=== PATIENT | female | born 1990 | race Two or more races ===

== ENCOUNTER 2023-09-23 15:09 | Emergency (ER) | payer OTHER, SELFPAY ==
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
--- NOTE | ~2023-09-23 | XR_ITS ---
EXAMINATION: XR FEMUR, RIGHT CLINICAL INFORMATION: Pain COMPARISON: Visualized proximal femur on the CT scan from earlier today TECHNIQUE: Single frontal views of the right femur were obtained. FINDINGS: Visualized bone is unremarkable. I do not appreciate any acute fracture or dislocation. No bony destructive lesion or periosteal reaction. No acute abnormality seen within the knee on this single projection XR/XR femur RT 2V IMPRESSION: No acute bony abnormality on this single projection.
[2023-09-23 15:11] VITALS: BP 190/140; BP 213/130; PULSE 110; PULSE 99; RESP 20; TEMP 36.2; O2SAT 100; BMI 27.0
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
[2023-09-23 15:25] VITALS: RESP 24
[2023-09-23] MEDS: Morphine Sulfate 4 MG/ML CARTRIDGE IVPUSH (15:25)
[2023-09-23 15:46] LABS: MANUAL DIFF FLAG NO
[2023-09-23 15:47] VITALS: RESP 22
[2023-09-23 15:47] LABS: Basophils Percent Auto 0.7 % (0-2); Eosinophils Percent Auto 0.7 % (0-4); Hematocrit 37.5 % (37.0-47.0); Hemoglobin 12.7 g/dl (12.0-16.0); Imm Gran Abs Auto 0.01 X10*3/uL (0.00-0.03); Imm Gran Pct Auto 0.2 % (0.0-0.4); Lymphocytes Absolute Auto 1.4 X10*3/uL (1.2-4.9); Lymphocytes Percent Auto 30.1 % (20-40); Mean Corpuscular HGB Conc 33.9 g/dl (31.0-35.0); Mean Corpuscular Hemoglobin 28.7 pg (27.0-33.0); Mean Corpuscular Volume 84.7 fL (80.0-98.0); Mean Platelet Volume 10.3 fL (9.4-12.3); Monocytes Absolute Auto 0.3 X10*3/uL (0.1-1.2); Monocytes Percent Auto 7.3 % (2-11); Neutrophils Absolute Auto 2.8 x10*3/uL (2.0-8.3); Platelet Count 240 X10*3/uL (160-400); Red Blood Count 4.43 X10*6/uL (4.20-5.50); Red Cell Distribution Width 12.5 % (11.0-16.0); White Blood Count 4.5 X10*3/uL (4.8-10.8)
[2023-09-23] MEDS: HYDROmorphone HCl 2 MG/ML VIAL IVPUSH (15:47)
[2023-09-23 16:19] LABS: Alanine Aminotransferase 17 U/L (0-31); Albumin Level 4.2 g/dL (3.5-5.0); Alkaline Phosphatase 61 U/L (39-117); Anion Gap 14 (12-20); Aspartate Amino Transferase 28 U/L (5-31); Bilirubin Direct 0.1 mg/dL (0.0-0.5); Bilirubin Total 0.4 mg/dL (0.0-1.0); Blood Urea Nitrogen 11 mg/dL (9-16); Calcium 9.1 mg/dL (8.4-10.2); Carbon Dioxide 24 mmol/L (22-29); Chloride 106 mmol/L (96-108); Creatinine Clr Calc Pharmacy 90.4; Estimated Glomerular Filt Rate > 60; Glucose Random 101 mg/dL (60-115); Potassium 3.6 mmol/L (3.3-5.1); Sodium 140 mmol/L (135-145); Total Protein 7.1 g/dL (6.5-8.0)
[2023-09-23 16:27] LABS: HCG Quantitative < 2 mIU/mL
[2023-09-23] MEDS: iohexoL 350 MG/ML 100 ML INFUS..BTL IV (17:09)
[2023-09-23 17:16] VITALS: BP 180/119; PULSE 97; RESP 24; O2SAT 100
[2023-09-23] MEDS: fentaNYL citrate/PF 100 MCG/2 ML VIAL 50 MCG IVPUSH (17:16)
[2023-09-23 17:20] VITALS: BP 167/123; PULSE 94; RESP 30; O2SAT 100
[2023-09-23 17:41] VITALS: BP 181/118; PULSE 86; RESP 20; O2SAT 100
[2023-09-23 17:54] LABS: COVID-19 Test Negative (Negative); IDNOW Serial# 6674DD1D
== END 2023-09-23 17:50 | disposition short-term general hospital (02) ==
PROVIDERS: Physician Assistant Medical; Emergency Provider Emergency Medicine
DX: S36.899A Unspecified injury of other intra-abdominal organs, initial encounter (principal); M25.561 Pain in right knee; R10.32 Left lower quadrant pain; M54.2 Cervicalgia; M79.604 Pain in right leg; R51.9 Headache, unspecified; V43.52XA Car driver injured in collision with other type car in traffic accident, initial encounter; Y93.9 Activity, unspecified; Y92.410 Unspecified street and highway as the place of occurrence of the external cause; Y99.9 Unspecified external cause status; Z11.52 Encounter for screening for COVID-19; Z20.822 Contact with and (suspected) exposure to COVID-19; Z79.899 Other long term (current) drug therapy
CPT/HCPCS: 36415; 70450; 71260; 72125; 73552; 74177; 80048; 80076; 84702; 85025; 87635; 96374; 96375; 99285; J1170; J2270; J3010; Q9967